=== PATIENT | female | born 1940 ===

== ENCOUNTER 2021-02-17 08:23 | Outpatient (CLI) | payer OTHER | END 2021-02-17 08:28 | disposition home or self-care (01) | LOC: NUCLEAR 08:23 | DX: I70.213 Atherosclerosis of native arteries of extremities with intermittent claudication, bilateral legs (principal) ==

== ENCOUNTER → 2025-04-08 09:05 | Outpatient (CLI) | payer OTHER | END | disposition home or self-care (01) | LOC: NUCLEAR 09:05 | DX: I73.9 Peripheral vascular disease, unspecified (principal) ==

== ENCOUNTER → 2025-04-10 07:48 | Outpatient (CLI) | payer OTHER | END | disposition home or self-care (01) | LOC: NUCLEAR 07:48 | DX: I73.9 Peripheral vascular disease, unspecified (principal) ==